=== PATIENT | female | born 1990 | race Caucasian/White ===

== ENCOUNTER 2024-12-21 21:39 | Inpatient (IN) | payer BC ==
[~2024-12-21] VITALS: Ht 157.5 cm; Wt 45.5 kg
[2024-12-21 22:12] LABS: BASOPHILS % 0.4 % (0.0-2.0); EOSINOPHILS % 1.9 % (0.0-5.0); HEMATOCRIT. 39.3 % (36.0-48.0); HEMOGLOBIN. 13.3 g/dL (12.0-16.0); LYMPHOCYTES % 34.8 % (20.0-50.0); MEAN CORPUSCULAR HEMOGLOBIN 32.1 pg (28.0-32.0); MEAN CORPUSCULAR HGB CONC 33.9 g/dL (31.0-37.0); MEAN CORPUSCULAR VOLUME 94.6 fL (81.0-99.0); MEAN PLATELET VOLUME 7.4 fl (7.4-10.4); MONOCYTES % 8.8 % (2.0-8.0); NEUTROPHILS % 54.1 % (40.0-76.0); PLATELET 356 x1000/uL (130-400); RED BLOOD CELL COUNT 4.15 mill/uL (4.2-5.4); RED CELL DISTRIBUTION WIDTH 12.8 % (11.6-14.6); WHITE BLOOD COUNT 9.2 x1000/uL (4.5-11.0)
[2024-12-21] MEDS: SODIUM CHLORIDE 0.9% 1,000 ML IV ONE (22:15)
[2024-12-21 22:20] LABS: CHLORIDE 105 mEq/L (98-107); POTASSIUM 3.6 mEq/L (3.5-5.1); SODIUM 140 mEq/L (136-145)
[2024-12-21 22:21] LABS: CALCIUM 9.6 mg/dL (8.7-10.4); CARBON DIOXIDE 25 mEq/L (21-32)
[2024-12-21 22:26] LABS: CREATININE 0.8 mg/dL (0.6-1.0); GLUCOSE 112 mg/dL (70-105); UREA NITROGEN BLOOD 11 mg/dL (9-23)
[2024-12-21 22:27] LABS: ETHANOL BLOOD < 10 mg/dL (<10)
[2024-12-21 22:28] LABS: PROTHROMBIN TIME 10.4 sec (9.6-11.0); TROPONIN I HIGH SENSITIVITY < 4 ng/L (3.0-34)
[2024-12-21 22:36] LABS: HCG SCREEN NEGATIVE
[2024-12-21] MEDS: IOHEXOL-350 100 ML BOTTLE ONE (22:51)
[2024-12-21 23:10] LABS: *AMPHETAMINES SCREEN URINE NEGATIVE (NEGATIVE); *BARBITURATES SCREEN URINE NEGATIVE (NEGATIVE); *BENZODIAZEPINES SCREEN URINE NEGATIVE (NEGATIVE); *COCAINE SCREEN URINE NEGATIVE (NEGATIVE); METHADONE URINE SCREEN NEGATIVE (NEGATIVE); OPIATES URINE SCREEN NEGATIVE (NEGATIVE)
[2024-12-21 23:11] LABS: CANNABINOID URINE SCREEN NEGATIVE (NEGATIVE); ECSTASY MDMA SCREEN URINE NEGATIVE (NEGATIVE); PHENCYCLIDINE URINE SCREEN NEGATIVE (NEGATIVE)
[2024-12-21] MEDS ORDERED: LORAZEPAM 2MG/ML INJ IV ONE (23:15)
[2024-12-21 23:17] LABS: CLARITY URINE CLEAR (CLEAR); COLOR URINE YELLOW (YELLOW); GLUCOSE URINE NEGATIVE (NEGATIVE); KETONES URINE NEGATIVE (NEGATIVE); PROTEIN URINE NEGATIVE (NEGATIVE); SPECIFIC GRAVITY URINE 1.041 (1.005-1.030)
[2024-12-21 23:18] LABS: LEUKOCYTE ESTERASE URINE 1+ (NEGATIVE); NITRITE URINE NEGATIVE (NEGATIVE); OCCULT BLOOD URINE 1+ (NEGATIVE); UROBILINOGEN URINE 0.2 E.U./dL (0.2-1.0)
[2024-12-21 23:20] LABS: BACTERIA URINE TRACE; SQUAMOUS EPITHELIAL CELL URINE 1+ /lpf (RARE/1+)
[2024-12-22] MEDS ORDERED: GUAIFENESIN 200MG/10ML SUGAR FREE UDC PO PRN (01:00)
[2024-12-22] MEDS ORDERED: MAGNESIUM/ALUMINUM HYDROXIDE/SIMETHICONE 30ML UDC PO PRN (01:00)
[2024-12-22] MEDS ORDERED: ACETAMINOPHEN 325MG TABLET PO PRN ×2 (01:00)
[2024-12-22] MEDS ORDERED: ONDANSETRON HCL 4MG/2ML INJ IV PRN (01:00)
[2024-12-22] MEDS ORDERED: DOCUSATE SODIUM 100MG CAPSULE PO PRN (01:00)
[2024-12-22] MEDS ORDERED: IPRATROPIUM/ALBUTEROL 0.5-3(2.5)MG/3ML NEB HHN PRN (01:00)
[2024-12-22 01:10] LABS: TROPONIN I HIGH SENSITIVITY < 4 ng/L (3.0-34)
[2024-12-22] MEDS: DEXT 5%/0.45% NACL 1000ML 1,000 ML IV ONE (01:39)
[2024-12-22] MEDS ORDERED: ZOLPIDEM TARTRATE 5MG TABLET PO NR (01:45)
[2024-12-22] MEDS ORDERED: CEFTRIAXONE SODIUM 1G VIAL IV ONE (01:45)
[2024-12-22 01:48] VITALS: BP 99/62; PULSE 105; RESP 18; TEMP 36.6
[2024-12-22] MEDS: CEFTRIAXONE 1GM/50ML 50 ML IV NR (02:16)
[2024-12-22 04:00] VITALS: BP 92/45; PULSE 102; RESP 18; TEMP 35.6; O2SAT 100
[2024-12-22 08:00] VITALS: BP 99/57; PULSE 93; RESP 18; TEMP 36.4; O2SAT 100
[2024-12-22] MEDS: MULTIVITAMINS,THER W-MINERALS TABLET PO SCH (08:35)
[2024-12-22] MEDS: FAMOTIDINE 20MG TABLET PO SCH (08:35)
[2024-12-22] MEDS ORDERED: CEFTRIAXONE 1GM/50ML 50 ML IV SCH ×2 (09:00→22:00)
[2024-12-22 11:37] VITALS: BP 91/53; PULSE 89; TEMP 97.6; O2SAT 100
[2024-12-22 11:48] VITALS: BP 91/53; PULSE 89; RESP 18; TEMP 36.4; O2SAT 100
== END 2024-12-22 12:10 | disposition home or self-care (01) | DRG 103 ==
LOC: ER 21:39 → 6WST 23:20 → EDBEDREQ 23:23
PROVIDERS: ADMIT Internal Medicine; ATTEND Internal Medicine
DX: G43.909 Migraine, unspecified, not intractable, without status migrainosus (principal); N39.0 Urinary tract infection, site not specified; E78.5 Hyperlipidemia, unspecified; F41.9 Anxiety disorder, unspecified; R00.2 Palpitations; T43.615A Adverse effect of caffeine, initial encounter; Z87.440 Personal history of urinary (tract) infections; Y92.89 Other specified places as the place of occurrence of the external cause
CPT/HCPCS: 36415; 70496; 70498; 71045; 80048; 80305; 80320; 81003; 84484; 84703; 85025; 93005; 99291; J0696; J7030; Q9967; G0480